=== PATIENT | male | born 1955 | race Caucasian/White ===

== ENCOUNTER 2022-07-08 10:51 | Emergency (ER) | payer BC ==
[~2022-07-08] VITALS: Ht 170.2 cm; Wt 90.7 kg
[2022-07-08] MEDS ORDERED: OLME1TAB92 PO (11:09)
[2022-07-08] MEDS ORDERED: ATOR40TA PO (11:09)
[2022-07-08] MEDS ORDERED: IV NORMAL SALINE 500 ML BAG IV ONE ×2 (11:15→11:45)
[2022-07-08 11:20] LABS: HEMATOCRIT 42.4 % (36.7-47.1); MEAN CORPUSCULAR HEMOGLOBIN 31.4 uug (23.8-33.4); MEAN CORPUSCULAR VOLUME 92.6 fL (73.0-96.2); PLATELET COUNT (AUTO) 227 K/uL (152-348)
[2022-07-08] MEDS ORDERED: IOHEXOL 350 100 ML INFUS..BTL ONE (11:31)
[2022-07-08] MEDS ORDERED: SWABABLE VALVE TRANSFER SET EA MC ONE (11:31)
[2022-07-08] MEDS ORDERED: IV NORMAL SALINE 250 ML IV ONE (11:31)
[2022-07-08 11:40] LABS: CREATININE 1.4 mg/dL (0.6-1.3)
[2022-07-08 11:51] LABS: BILIRUBIN,TOTAL 0.9 mg/dL (0.2-1.0); TOTAL PROTEIN, SERUM 7.3 g/dL (6.4-8.2)
--- NOTE | 2022-07-08 13:11 | NUR ---
Patient ambulated to the bathroom with brisk steady gait, pending 2nd troponin result at this time.
--- NOTE | 2022-07-08 13:34 | NUR ---
IV removed. Catheter intact and site benign. Pressure and 4x4 gauze applied to site. No bleeding noted. Patient discharged to home by Dr Roberts and Dr Buchanan in stable condition with brisk steady gait. Written and verbal after care instructions given to patient and patient's spouse. Patient and spouse verbalized understanding and compliance of instructions. Stressed follow up with primary doctor or return to ER for worsening s/s.
== END 2022-07-08 13:34 | disposition home or self-care (01) ==
LOC: ER 10:53
DX: R55 Syncope and collapse (principal); M79.641 Pain in right hand; R07.89 Other chest pain; E78.5 Hyperlipidemia, unspecified; Z79.899 Other long term (current) drug therapy
CPT/HCPCS: 99285; 70450; 96360; 71045; 96361; 80053; 83880; 85025; 85610; 84484 ×2; 36415; 93005; 73130; 70486; 71275; 72125; Q9967; J7040 ×2; A4663